=== PATIENT | female | born 1940 | race Caucasian/White ===

== ENCOUNTER → 2022-02-20 | Day surgery (SDC) | payer MEDICARE ==
[~2022-02-20] VITALS: Ht 165.1 cm; Wt 74.8 kg
[~2022-02-20] MED LIST: AMITRIPTYLINE H10 MG PO; ATORVASTATIN CA20 MG PO; BENAZEPRIL HCL20 M1 PO; CALCIUM CITRAT1 EAC1 PO; DAILY VALUE1 EACH PO; METFORMIN HCL500 M1 PO; NORCO 5/3251 EACH PO; PHENYTOIN SODI300 MG PO; VERAPAMIL SR240 MG PO
[2022-02-20 09:58] LABS: HCT 36.7 % (37.0-47.0); HGB 12.5 g/dl (12.5-16.0); MCH 32.2 pg (25.0-31.0); MCHC 34.1 g/dL (32.0-36.0); MCV 94.6 fL (78.0-100.0); MPV 8.8 fL (6.0-9.5); RBC 3.88 M/uL (4.20-5.40); WBC 4.9 K/uL (4.0-10.5)
[2022-02-20 11:10] LABS: ALBUMIN 3.2 g/dL (3.4-5.0); BILIRUBIN - TOTAL 0.3 mg/dL (0.2-1.0); CREATININE 0.75 mg/dL (0.51-0.95); GLOBULIN (CALCULATION) 4.5 g/dL; POTASSIUM 4.4 mmol/L (3.5-5.1); TOTAL PROTEIN 7.7 g/dL (6.4-8.2)
== END | disposition home or self-care (01) ==
LOC: FAS 09:03
PROVIDERS: Orthopaedic Surgery
DX: S82.62XA Displaced fracture of lateral malleolus of left fibula, initial encounter for closed fracture (principal); W19.XXXA Unspecified fall, initial encounter
CPT/HCPCS: 36415; 71045; 73600; 76000; 80053; 93005; C1713; J0690; J1170; J2250; J2704; J2795; J3010; J7120